=== PATIENT | male | born 1950 | race Caucasian/White ===

== ENCOUNTER 2021-11-28 08:57 | Outpatient (CLI) | payer MEDICARE | END 2021-11-28 08:58 | disposition home or self-care (01) | LOC: CSHRAD 08:57 | PROVIDERS: ATTEND Family Medicine | DX: M54.50 Low back pain, unspecified (principal); M53.3 Sacrococcygeal disorders, not elsewhere classified; M47.816 Spondylosis without myelopathy or radiculopathy, lumbar region | CPT/HCPCS: 72100; 72220 ==